=== PATIENT | male | born 1955 | race Caucasian/White ===

== ENCOUNTER → 2017-05-18 | Outpatient (CLI) | payer MEDICARE ==
[~2017-05-18] MED LIST: AMLODIPINE10 M2 PO; BENAZEPRIL40 MG PO; GABAPENTIN 400400 MG PO; GLIPIZIDE10 MG PO; LAMOTRIGINE200 M2 PO; METFORMIN1000 MG PO; METOPROLOL 25 M25 MG PO; OXYCODONE HCL10 M1 PO; PLAVIX 75MG TAB75 MG PO; ROPINIROLE HYDRO2 MG PO
[2017-05-18 09:22] LABS: BUN 23 mg/dL (7-18)
[2017-05-18 09:27] LABS: GFR (ESTIMATED) 85 ML/MIN (>60)
--- NOTE | 2017-05-18 19:36 | RADIOLOGY REPORT PS360 ---
MRI-LOW EXT OTH THN JNT W/O-RT MRI right foot HISTORY: DIABETIC ULCER RT Patient Age: 61 years: Male Ordering Physician: SCAR CASON TECHNIQUE: Multiplanar multisequence imaging 1.5 T MR. This study was ordered with contrast but the patient could not tolerate lying on the table awanted off table thus no IV contrast utilized. Motion artifact on the sagittal STIR image decreases resolution here COMPARISON :None available FINDINGS The soft tissues at the plantar aspect of foot appear indurated with edema. Relatively shallow appearing ulceration is seen centrally within this region just inferior to the above MTP joint. Skin Marker placed over this region and evident on today's MR.. The region of of edema & induration span at least 4 cm in length x over 3 cm transverse X nearly 10 mm vertical thickness maximally here beneath the first MTP joint. . At the proximal aspect of this soft tissue abnormalities there is question/suggestion of this small irregular focal collection measuring 5 x 7 x 10 mm transverse mm a just inferior to the sesamoids/specifically plantar aspect medial sesamoid bone, just beneath the first metatarsal head (coronal slice 19q axial 22 sagittal 23.) This subtle fluid collection lies beneath the plantar aspect of sesamoid bone appears to be separate; and does does not definitely involve them. Sesamoids remain fairly normal signal. With only Upper normal signal is seen at the medial plantar Sesamoid bone, reviewed in all 3 planes.. No definitive osteomyelitis evidence. No prominent osseous abdomen signal abnormalities On close inspection , only note that there is some very subtle minor increased signal beneath the slight roughening cortex here at the medial head of the first metatarsal. This could merely reflect mild reactive changes here. Minor/ Unimpressive... Although Difficult to totally exclude extremely early abnormality of the unlikely.,- scant early osteomyelitis but unlikely. A would note this edema does disseminate even further laterally residing in the plantar soft tissues just inferior to the second MTP joint. This appears to be a fairly shallow ulcer with a fairly well-defined D deep margin is seen on on axial slice 14 sagittal 25 . Suggest Plain film follow-up and correlation, would be be helpful here as well. . . IMPRESSION Patient refused IV contrast.(Could not continue to lay on MRI table after initial set of images..) No good evidence of osteomyelitis Diabetic ulcer Ulcer involving soft tissues beneath the plantar aspect base of proximal phalanx great toe & first MTP joint. Generous region of soft tissue edema & induration beneath, circumferentially beneath this ulcer. , Throughout soft tissues beneath plantar aspect of first MTP joint extending to the plantar aspect of great toe with edema extending beneath the plantar aspect second MTP joint. Suggestive of a small 10 x 7 x 5 mm fluid collection of question at the medial/proximal aspect of this region just beneath, overlying the plantar aspect of sesamoid bones,.. Sesamoid bones appear intact overall. As stated above no good evidence of osteomyelitis Subtle barely evident increased signal immediately beneath the roughening cortex at the medial head first metatarsal noted but may merely reflect some mild reactive change. Unimpressive. . Plain film correlation would be helpful. None available to us. If symptoms progress may require follow-up imaging
== END ==
LOC: RAD 05-02 13:00
PROVIDERS: Podiatrist
DX: L97.519 Non-pressure chronic ulcer of other part of right foot with unspecified severity (principal); E11.621 Type 2 diabetes mellitus with foot ulcer